=== PATIENT | female | born 1960 | race Caucasian/White ===

== ENCOUNTER 2018-04-21 06:05 | Day surgery (SDC) | payer OTHER ==
[2018-04-08 16:20] VITALS: BMI 23.0
[2018-04-21] VITALS (9 sets, daily range): BP systolic 113–193; BP diastolic 84–91; PULSE 55–61; TEMP 36.4–36.6; O2SAT 60–100; Ht 162.6 cm; Wt 61.4 kg
[~2018-04-21] VITALS: Ht 162.6 cm; Wt 61.4 kg
[~2018-04-21 06:05] MED LIST: ATEN-173 PO; LACTATED RINGER'S 1000ML 1,000 ML IV SCH; MULT-506 PO
[2018-04-21] MEDS ORDERED: ATROPINE SULFATE 0.1 MG/ML 5ML SYR IV PRN (06:45)
[2018-04-21] MEDS ORDERED: ONDANSETRON INJ 2 MG/ML 2 ML VIAL IV PRN (06:45)
[2018-04-21] MEDS ORDERED: PROMETHAZINE HCL INJ 12.5 MG in SODIUM CHLORIDE 0.9% 50ML 50 ML IV PRN (06:45)
[2018-04-21] MEDS ORDERED: PHENYLEPHRINE 100MCG/ML 5ML SYR IV PRN (06:45)
[2018-04-21] MEDS ORDERED: EpHEDrine SULFATE INJ 50 MG/ML AMP IV PRN (06:45)
[2018-04-21] MEDS ORDERED: FENTANYL CITRATE INJ 50 MCG/1 ML 2 ML VIAL IV PRN (06:45)
[2018-04-21] MEDS ORDERED: HYDROmorphone INJ 0.5 MG/0.5 ML SYR IV PRN (06:45)
[2018-04-21] MEDS ORDERED: PROPOFOL IV EMULSION 10 MG/ML 100 ML VIAL ONE (06:58)
[2018-04-21] MEDS ORDERED: LIDOCAINE HCL 2% 2 ML VIAL (20MG/ML) ONE (07:06)
[2018-04-21] MEDS ORDERED: PHENYLEPHRINE 100MCG/ML 5ML SYR ONE (07:06)
[2018-04-21] MEDS ORDERED: FENTANYL CITRATE INJ 50 MCG/1 ML 2 ML VIAL ONE ×3 (07:06→11:03)
[2018-04-21] MEDS ORDERED: EpHEDrine SULFATE 50MG/5ML SYR ONE (07:06)
[2018-04-21] MEDS ORDERED: MIDAZOLAM HCL 1 MG/ML 2ML VIAL ONE (07:06)
[2018-04-21] MEDS ORDERED: PROPOFOL IV EMULSION 10 MG/ML 20 ML VIAL ONE (07:06)
--- NOTE | 2018-04-21 08:08 | History and Physical ---
History & Physical Date April 21, 2018. Chief Complaint palpitations History of Present Illness The patient is a 57 year old female with complaints of palpitations Past Medical/Surgical History svt HTN chronic tobacco use Additional History Hepatic Disease: No Endocrine Disorder: No Kidney Disease: No Hypertension: Yes Heart Disease: No Bleeding Tendencies: No Infectious Diseases: No Allergies Coded Allergies: Latex1 -Allergic Contact Dermititis (Verified Allergy, Unknown, RED RASH, HIVES, BURNING SENSATION, 04/21/18) NO KNOWN DRUG ALLERGIES (Verified Allergy, Unknown, ., 04/21/18) Home Medications Scheduled Atenolol (Tenormin), 25 MG PO 1400 Multivitamin (Multivitamin), 1 TAB PO DAILY Physical Examination Skin: warm/dry, no rash Eyes: normal inspection, EOMI Head: normocephalic, atraumatic Neck: supple Respiratory/Chest: lungs clear, normal breath sounds Cardiovascular: regular rate, rhythm, no edema, no murmur Abdomen / GI: normal bowel sounds Neurologic/Psych: alert, oriented x 3 Diagnosis svt htn chronic tobacco use ASA Classification: ASA Class II Plan of Treatment eps with possible ablation; rediscussed the procedure and risks today-consent obtained
[2018-04-21] MEDS ORDERED: ISOPROTERENOL 200 MCG / 50ML D5W ONE (09:16)
[2018-04-21] MEDS ORDERED: IV FLUIDS COMPLETED PRN (10:00)
[2018-04-21] MEDS ORDERED: ACETAMINOPHEN 325 MG TAB PO PRN (11:30)
--- NOTE | 2018-04-21 11:30 | [facility] Post Operative Brief Note ---
Immediate Operative Summary Operative Date April 21, 2018. Pre-Operative Diagnosis svt Post-Operative Diagnosis avnrt Procedure(s) Performed EPS, 3d mapping of His bundle, C/S os, isprel drug infusion; slow pathway modification Surgeon jesse bran Debone Processing Supervisor Surgeon(s) none Estimated Blood Loss <5cc Findings See Below see official report Fluids (cc crystalloids) 400cc Specimens none Drains None Anesthesia Type MAC Complication(s) none Disposition Accompanied Pt To Recover: yes Disposition: PCU Overlapping Procedure I was present for: the critical portions of procedure. I was immediately available: during the entire case Back up surgeon: was not required during procedure
--- NOTE | 2018-04-21 11:32 | Discharge Instructions ---
Discharge Instructions Date of Service April 21, 2018. Admission Reason for Admission: Supraventicular Tachicardia *W/Anesthesia* Discharge Discharge Diagnosis / Problem: avnrt s/p slow pathway modification Discharge Goals Goal(s): Improve function Activity Recommendations Activity Limitations: as noted below Lifting Limitations: no more than 10 pounds (no heavy lifting or squating for 1 week) May Resume Sexual Activity: after one week Shower/Bathe: tomorrow Driving or Machine Use: resume 1 day after discharge . Instructions / Follow-Up Instructions / Follow-Up ACTIVITY RECOMMENDATIONS: It is common to feel weak and fatigue for a few days. * Do not drive or operate any motorized equipment for the next 1 day. * Limit stair usage (2 or 3 trips a day only) for the next three days. * Do not lift anything heavier than 10 pounds for the next 7 days. * Do not engage in vigorous exercise or any sports for the next 7 days. * You may shower the day after your procedure, but do not immerse the area for three days. Cleanse the site gently with soap and water. SPECIAL CARE INSTRUCTIONS: * You may replace the pressure dressing or band-aid the morning after the procedure. * After your procedure, it is normal to have a small bruise or small lump at the site. Examine your site daily for any change in the bruise or lump, redness, swelling, drainage or numbness. Notify your doctor if any change. BLEEDING: * If there is a small amount of bleeding at the site, lie down and apply firm pressure with a clean cloth for ten minutes. When the bleeding stops, lie quietly keeping the procedure limb straight for six hours. Notify your doctor as soon as possible. * If the bleeding does not stop after ten minutes or if there is a large amount of bleeding or spurting, call 911 immediately. Continue to lie down and hold firm pressure until help arrives. SKIN IRRITATION: * You may experience some redness and/or swelling in the area where radiation was administered. If any skin irritation occurs, please contact your family physician. FOLLOW UP VISIT: Keep any scheduled doctor appointments. Current Hospital Diet Patient's current hospital diet: Regular Diet Discharge Diet Recommended Diet: Regular Diet Procedures Procedures Performed: EPS, 3d mapping of His bundle, C/S os, isprel drug infusion; slow pathway modification Pending Studies Studies pending at discharge: no Medical Emergencies . Who to Call and When: Medical Emergencies: If at any time you feel your situation is an emergency, please call 911 immediately. . Non-Emergent Contact Non-Emergency issues call your: Automatic Pilot Mechanic . . "Provider Documentation" section prepared by Brittni Hensley. .
--- NOTE | 2018-04-21 11:36 | Discharge Summary ---
Discharge Summary Date of Service April 21, 2018. Discharge Summary Admission Date: 04/21/2018 Discharge Date: April 22, 2018 Discharge Disposition: Home Principal Diagnosis: avnrt s/p slow pathway modification Secondary Diagnoses/Problems: Tobacco use Procedures: EPS, 3d mapping of his bundle and C/S os, isoprel drug infusion; slow pathway modification Medication Reconciliation Continued Medications: Multivitamin (Multivitamin) Tab 1 TAB PO DAILY, TAB Discontinued Medications: Atenolol (Tenormin) 25 Mg Tab 25 MG PO 1400, TAB Admission Information Physical Exam (per Admitting): aaox3, NAD NC/AT, EOMI Supple, No JVD Nrl S1/S2, bradycardia, no murmur CTA b/l no w/r/r soft nt/nd no edema b/l No focal deficits skin intact Hospital Course Pt admitted for elective EPS with possible ablation due to SVT. 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 Monitored overnight and discharged home. Total time spent on discharge = > 30 minutes This includes examination of the patient, discharge planning, medication reconciliation, and communication with other providers. Discharge Instructions ACTIVITY RECOMMENDATIONS: It is common to feel weak and fatigue for a few days. * Do not drive or operate any motorized equipment for the next 1 day. * Limit stair usage (2 or 3 trips a day only) for the next 1 days. * Do not lift anything heavier than 10 pounds for the next 7 days. * Do not engage in vigorous exercise or any sports for the next 7 days. * You may shower the day after your procedure, but do not immerse the area for three days. Cleanse the site gently with soap and water. SPECIAL CARE INSTRUCTIONS: * You may replace the pressure dressing or band-aid the morning after the procedure. * After your procedure, it is normal to have a small bruise or small lump at the site. Examine your site daily for any change in the bruise or lump, redness, swelling, drainage or numbness. Notify your doctor if any change. BLEEDING: * If there is a small amount of bleeding at the site, lie down and apply firm pressure with a clean cloth for ten minutes. When the bleeding stops, lie quietly keeping the procedure limb straight for six hours. Notify your doctor as soon as possible. * If the bleeding does not stop after ten minutes or if there is a large amount of bleeding or spurting, call 911 immediately. Continue to lie down and hold firm pressure until help arrives. SKIN IRRITATION: * You may experience some redness and/or swelling in the area where radiation was administered. If any skin irritation occurs, please contact your family physician. FOLLOW UP VISIT: Keep any scheduled doctor appointments.
--- NOTE | 2018-04-21 12:46 | Anesthesiology Progress Note ---
Anesthesia Post Op Note Date & Time April 21, 2018 at 12:46 Vital Signs Pain Intensity: 0 Vital Signs Past 12 Hours Date Time Temp Pulse Resp B/P (MAP) Pulse Ox O2 Delivery O2 Flow Rate FiO2 04/21/18 12:09 36.4 61 18 143/87 100 Room Air 04/21/18 11:55 76 16 126/89 (101) 100 Room Air 04/21/18 11:45 74 16 127/95 (106) 100 Room Air 04/21/18 11:35 68 16 126/81 (96) 100 Room Air 04/21/18 07:06 36.6 60 16 193/91 (125) 60 Room Air Notes Mental Status: alert / awake / arousable, participated in evaluation Pt Amnestic to Procedure: Yes Nausea / Vomiting: adequately controlled Pain: adequately controlled Airway Patency, RR, SpO2: stable & adequate BP & HR: stable & adequate Hydration State: stable & adequate Anesthetic Complications: no major complications apparent
--- NOTE | 2018-04-21 15:30 | OPERATIVE REPORT ---
DATE OF OPERATION: 04/21/2018 PREOPERATIVE DIAGNOSIS: Supraventricular tachycardia. POSTOPERATIVE DIAGNOSIS: Typical atrioventricular jacky reentrant tachycardia. PROCEDURES: Electrophysiology study, 3D mapping of the His bundle and coronary sinus os, Isuprel drug challenge infusion, slow pathway modification. SURGEON: Brittni Hensley DO COMMUNITY SERVICE DIRECTOR: None. ANESTHESIA: Monitored anesthetic care administered via Anesthesiology, total of 4 mg of Versed, 300 mcg of fentanyl and 1250 mg of propofol. IV FLUIDS: 400 mL URINE OUTPUT: Not applicable. SPECIMENS: None. FINDINGS: See below. DRAINS: None. COMPLICATIONS: None. CONDITION: Stable. BLOOD LOSS: Less than 5 mL INDICATIONS: This is a 57-year-old female with past medical history of recurrent palpitations, ultimately went to the Emergency Room and documented SVT, responded to adenosine. Due to the recurrent palpitations and documented SVT, she was recommended an electrophysiology study. Her other past medical history is chronic tobacco use and white coat syndrome where her blood pressure is always elevated in the doctor's office. CONSENT: Consent was obtained prior to the patient going into Electrophysiology Lab. The patient was informed of the risks, benefits, and alternatives of procedure. Risks include but not limited to sudden cardiac , cardiac arrhythmias, cerebrovascular accident, myocardial infarction, injury to the blood vessels, chamber of the heart or the [place] electrical system where she would need a permanent pacemaker, bleeding and infection. The patient understood these risks and agreed to the procedure as planned. Informed consent was obtained. DESCRIPTION OF PROCEDURE: The patient was brought into Electrophysiology Lab in a fasting state. She was connected to continuous electronic device monitor. A timeout was performed to ensure the patient's identity and procedure correctly. The patient was prepped and draped over the bilateral groins in normal surgical standard fashion. Monitored anesthetic care was given throughout the procedure for patient's comfort level via Anesthesiology. Wheeler precautions were maintained throughout the procedure. 10 mL of 1% lidocaine were given in the bilateral groins for local anesthesia. Using the ultrasound Doppler, venous access was obtained via modified Seldinger technique in the following manner. The left femoral vein had a 6-Cypriot sheath, followed by Joel quadripolar catheter positioned in the right ventricular apex. A 7-Cypriot sheath followed by a Hisser quadripolar catheter positioned over the His bundle region. A 7-Cypriot sheath followed by a Parakey DF curved coronary sinus catheter positioned down the coronary sinus. The right femoral vein had a 6-Cypriot sheath followed by Joel quadripolar catheter positioned in the high right atrium. A 6-Cypriot sheath that was ultimately eventually swapped out for an SR0 sheath and Biosense 4 mm ablation catheter DF curve. Once the catheters were all positioned, an electrophysiology study was performed with the following findings: IN interval 158 milliseconds, QRS 86 milliseconds, QT 426 milliseconds, sinus cycle length 1192 milliseconds, AH 82 milliseconds, HV 48 milliseconds, AV Wenckebach 460 milliseconds, fast pathway ERP 600/440 and 500/440, AV node ERP 600/310 and 500/330, atrial ERP 600/250 and 500/230, right ventricular ERP 600/260 and 400/240. I gave up to doubles from the high right atrium and even from the coronary sinus prox without any evidence of echoes or inducible SVT, so then we started Isuprel at 2. Once we had an adequate Isuprel response, we did another electrophysiology study with the following findings: IN interval 122 milliseconds, QRS 60 milliseconds, QT 402 milliseconds, sinus cycle length 820 milliseconds, AH 56 milliseconds, HV 50 milliseconds, AV Wenckebach 320 milliseconds. While she was on Isuprel, she ended up having a junctional response, but ultimately giving atrial extrastimuli from the high right atrium at 400/240. It looks like actually the 240 APC did not conduct, but another APC came in and with an AH jump, a tachycardia was induced. The tachycardia cycle length was 288 milliseconds, VA time 54 milliseconds, HV was 46 milliseconds. There was a concentric retrograde atrial conduction, and with ventricular pacing, the tachycardia continued and there was a VAV response. It actually took me a while to break the tachycardia even with matrix, atrial and ventricular burst pacing at the same time and ultimately at 240 milliseconds, I was able to break the tachycardia. It was at this point that we stopped the Isuprel. We diagnosed typical AVNRT and set up to do the AVRT ablation. The 6-Cypriot sheath in the right femoral vein was swapped out for an SRO and then the ablation catheter was positioned into the heart. We did 3D mapping of the His bundle region forming a nice His bundle cloud. In addition, we noted where the coronary sinus os was. We then set the ablation catheter on the low right atrial septum where we had a decent look and signal. There was a ridge along this area. We went more lateral initially and lower on the ridge, had to move up a little bit and go a little bit more medial. Initially, we were using 25 patterson, then we went up to 30 patterson. A few times, we did have some nice junctional, so I removed the ablation catheter from the heart and then set up to do a post-ablation electrophysiology study with the following findings: IN interval 152 milliseconds, QRS 82 milliseconds, QT 434 milliseconds, sinus cycle length 1138 milliseconds, AH 72 milliseconds, HV 52 milliseconds, AV Wenckebach was 440 milliseconds, the fast pathway ERP 600/390 and 500/400, the AV node ERP was 600/330 and 500/350, atrial ERP was 600/270 and 500/250, the right ventricular ERP was 600/260 and 400/220. I gave up to doubles, there was no SVT, so then we started the Isuprel. Again, she ended up going junctional on the Isuprel, but a tachycardia was induced this time a little slower and was induced at 400/250 atrial extrastimuli from the high right atrium, tachycardia cycle length was 372 milliseconds, VA time slightly longer at 90 milliseconds. The ventricular conduction was concentric and it did start with an AH jump. Ultimately, had to give matrix, atrial and ventricular burst pacing to break the tachycardia, so we then went back and repositioned the ablation catheter further on the right atrial, lower right atrial septum, a little higher up and a little medial on this ridge when we increased the wattage to 33. We then have again some nice junctional hernández after a series of hernández which were no more than 30 seconds. On average, they were 15-20 seconds long. We then set up to do another post-ablation electrophysiology study with the ablation catheter being removed from the heart. IN interval 142 milliseconds, QRS 78 milliseconds, QT 384 milliseconds, sinus cycle length 1052 milliseconds, AH 72 milliseconds, HV 60 milliseconds, AV Wenckebach 420 milliseconds, the fast pathway ERP was 500/390 and 450/340, AV node ERP was 500/340, the atrial ERP was 500/240 and 450/240. Of note, the AV node ERP at [address] was less than or equal to the atrial. Right ventricular ERP was 600/260 and 400/240. I gave up to double from the high right atrium without any inducible SVT. We then started Isuprel, again got a junctional response, but not as prolonged junctional response on the Isuprel than I had it prior. I gave up to triples on Isuprel from the high right atrium without any inducible SVT. I then continued to try to stimulate and induce SVT giving extra stimuli from the high rate atrium up to triples during Isuprel washout and did not get any further inducible SVT thereby deeming that the ablation was successful. All the catheters were then removed from the body and the sheaths were pulled and manual compression was used to establish hemostasis. IMPRESSION: 1. 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 2. Dual atrioventricular jacky pathology. PLAN: Monitor the patient overnight, 12-lead ECG. She is not allowed to do any heavy lifting or squatting for one week. She can stop her atenolol and she will follow up in our office in one month's time. I attest to the content of the Intraoperative Record and any orders documented therein. Any exception s are noted below.
[2018-04-21] MEDS ORDERED: NURSING VERBAL MED ORDER ONE (16:30)
[2018-04-21] MEDS ORDERED: NICOTINE 14 MG/24 HR TDSY TD SCH (17:00)
[2018-04-22] MEDS ORDERED: MULTIVITAMIN TAB PO SCH (09:00)
== END 2018-04-21 18:33 | disposition home or self-care (01) ==
LOC: C.ACU 06:05 → ENRESERV 09:59 → C.2T 11:27
PROVIDERS: ADMIT Internal Medicine; ATTEND Internal Medicine
DX: I47.1 Supraventricular tachycardia (principal); I10 Essential (primary) hypertension; F17.200 Nicotine dependence, unspecified, uncomplicated; Z91.040 Latex allergy status